=== PATIENT | female | born 1980 | race Caucasian/White ===

== ENCOUNTER 2023-11-25 04:11 | Day surgery (SDC) | payer BC ==
[2023-11-24 10:41] VITALS: BMI 27.1
[2023-11-25] MEDS ORDERED: ONDANSETRON 4 MG/2 ML VIAL IVPUSH PRN ×2 (08:23→10:06)
[2023-11-25] MEDS ORDERED: FENTANYL CITRATE/PF 50 MCG/ML VIAL ONE ×2 (09:05→10:25)
[2023-11-25] MEDS ORDERED: MIDAZOLAM HCL 2 MG/2 ML SINGLE DOSE VIAL ONE (09:05)
[2023-11-25] MEDS ORDERED: IBUPROFEN 800 MG/8 ML IJ IVPB PRN (10:06)
[2023-11-25] MEDS ORDERED: IBUPROFEN 600 MG TABLET (FP) PO PRN (10:06)
[2023-11-25] MEDS ORDERED: oxyCODONE HCL 5 MG TABLET PO PRN (10:06)
[2023-11-25] MEDS ORDERED: ELECTROLYTE-148 SOLN 1,000 ML IV SCH (10:15)
[2023-11-25] MEDS ORDERED: ONDANSETRON 4 MG/2 ML VIAL ONE (11:52)
[2023-11-25] MEDS ORDERED: DEXAMETHASONE SOD PHOSPHATE 4 MG/1 ML VIAL ONE (11:52)
[2023-11-25 12:39] VITALS: BP 117/73; PULSE 74; RESP 18; TEMP 98.5
== END 2023-11-25 12:50 | disposition home or self-care (01) ==
LOC: JASU-SURG 04:11
PROVIDERS: ATTEND Obstetrics & Gynecology
PROC: 0UB98ZZ Excision of Uterus, Via Natural or Artificial Opening Endoscopic (ICD-10-PCS; principal; 2023-11-25 08:30)
DX: N92.1 Excessive and frequent menstruation with irregular cycle (principal); D25.0 Submucous leiomyoma of uterus; N84.0 Polyp of corpus uteri; D64.9 Anemia, unspecified
CPT/HCPCS: 81025; 86850; 86900; 86901; 88305-TC; 94760

== ENCOUNTER 2025-03-28 06:23 | Day surgery (SDC) | payer BC ==
[2025-03-23 16:33] VITALS: BMI 26.2
[2025-03-28] MEDS ORDERED: MIDAZOLAM HCL 2 MG/2 ML SINGLE DOSE VIAL ONE (12:01)
[2025-03-28] MEDS ORDERED: SUCCINYLCHOLINE CHLORIDE 200 MG/10 ML SYRINGE ONE (12:01)
[2025-03-28] MEDS ORDERED: PROPOFOL 40 ML ONE (12:01)
[2025-03-28 15:12] VITALS: RESP 18
[2025-03-28 15:30] VITALS: BP 126/77; PULSE 77; TEMP 97.4
== END 2025-03-28 16:45 | disposition home or self-care (01) ==
LOC: JASU-SURG 06:23
PROVIDERS: ATTEND Obstetrics & Gynecology
PROC: 0U5B8ZZ Destruction of Endometrium, Via Natural or Artificial Opening Endoscopic (ICD-10-PCS; principal; 2025-03-28 12:30)
DX: N92.0 Excessive and frequent menstruation with regular cycle (principal); D25.0 Submucous leiomyoma of uterus
CPT/HCPCS: 88305-TC; 94760